=== PATIENT | female | born 1965 | race Caucasian/White ===

== ENCOUNTER → 2018-01-13 | Outpatient (CLI) | payer BC | END | disposition home or self-care (01) | LOC: OIH 09:30 | PROVIDERS: ATTEND Internal Medicine | DX: M47.895 Other spondylosis, thoracolumbar region (principal) | CPT/HCPCS: 71046 ==

== ENCOUNTER 2021-11-10 05:30 | Observation (INO) | payer BC ==
[2021-11-09 12:16] LABS: BASOPHILS % (AUTO) 0.6 % (0.0-5.0); EOSINOPHILS % (AUTO) 1.4 % (0.0-8.0); HEMATOCRIT 38.4 % (36-48); LYMPHOCYTES % (AUTO) 35.9 % (21.0-51.0); MEAN CORPUSCULAR HEMOGLOBIN 31.1 pg (27.0-33.0); MEAN CORPUSCULAR HGB CONC 33.3 g/dL (32.0-36.0); MEAN CORPUSCULAR VOLUME 93.2 fL (79-99); MONOCYTES % (AUTO) 6.5 % (3.0-13.0); NEUTROPHILS % (AUTO) 55.4 % (40.0-77.0); PLATELET COUNT (AUTO) 182 K/uL (130-400); RED BLOOD CELL COUNT(AUTO) 4.12 MIL/uL (4.00-5.50); RED CELL DISTRIBUTION WIDTH 12.6 % (11.0-15.5); WHITE BLOOD COUNT (AUTO) 4.9 K/uL (4.8-10.8)
[2021-11-09 13:28] VITALS: BP 135/77
[~2021-11-10] VITALS: Ht 170.2 cm; Wt 82.7 kg
[2021-11-10] VITALS (23 sets, daily range): BP systolic 97–131; BP diastolic 51–81
[~2021-11-10 05:30] MED LIST: MVIT PO
[2021-11-10] MEDS: CEFAZOLIN SODIUM 1 GM VIAL IVP ONE ×2 (07:38→10:48)
[2021-11-10] MEDS: LACTATED RINGERS 1000ML 1,000 ML IV SCH ×3 (07:38→12:08)
[2021-11-10] MEDS ORDERED: PROPOFOL 10 MG/ML 20ML VIAL IV ONE (08:33)
[2021-11-10] MEDS ORDERED: LIDOCAINE PF 100MG/5ML (2%) SYRINGE 5ML ONE (08:33)
[2021-11-10] MEDS ORDERED: SUCCINYLCHOLINE 200MG/10ML SYR ONE (08:33)
[2021-11-10] MEDS ORDERED: GLYCOPYRROLATE 1 MG/5 ML SYRINGE ONE ×2 (08:33→12:37)
[2021-11-10] MEDS ORDERED: DEXAMETHASONE SOD PHOSPHATE 10MG/ML 1ML VIAL ONE (08:33)
[2021-11-10] MEDS ORDERED: MIDAZOLAM HCL 1 MG/ML 2ML VIAL ONE (08:33)
[2021-11-10] MEDS ORDERED: FENTANYL CITRATE PF 50 MCG/1 ML 2ML VIAL ONE (08:34)
[2021-11-10] MEDS ORDERED: ONDANSETRON 4MG INJ ONE ×2 (08:34→12:26)
[2021-11-10] MEDS ORDERED: NEOSTIGMINE 5MG/5ML SYR IV ONE (08:34)
[2021-11-10] MEDS ORDERED: ROCURONIUM 10MG/1ML SYR 10 MG/ML ML ONE (08:34)
[2021-11-10] MEDS ORDERED: EPHEDRINE SULFATE 50 MG/ML AMPULE ONE (10:48)
[2021-11-10] MEDS ORDERED: MEPERIDINE-PF 25 MG/ML SYG ONE ×2 (12:25→12:54)
[2021-11-10] MEDS ORDERED: KETOROLAC 30MG VIAL (30MG/ML) ONE (12:26)
[2021-11-10] MEDS ORDERED: MEPERIDINE-PF 75 MG/ML SYG IM PRN (14:00)
[2021-11-10] MEDS ORDERED: PROMETHAZINE HCL 25 MG/ML 1ML AMPULE IM PRN ×2 (14:00)
[2021-11-10] MEDS ORDERED: BISACODYL 10 MG SUPP.RECT RC PRN (14:00)
[2021-11-10] MEDS: ACETAMINOPHEN WITH CODEINE 1 TAB TAB PO PRN ×2 (15:00→18:31)
[2021-11-10] MEDS: DEXTROSE 5 %-0.45 % NACL 1,000 ML IV PRN ×2 (15:00→22:09)
[2021-11-10] MEDS: ONDANSETRON 4MG INJ IVP PRN (19:13)
[2021-11-10] MEDS: IBUPROFEN 600 MG TABLET PO PRN (22:14)
[2021-11-11 04:00] VITALS: BP 100/58
[2021-11-11] MEDS: IBUPROFEN 600 MG TABLET PO PRN (04:00)
[2021-11-11] MEDS: DEXTROSE 5 %-0.45 % NACL 1,000 ML IV PRN (04:04)
[2021-11-11] MEDS: ONDANSETRON 4MG INJ IVP PRN ×2 (04:35→11:38)
[2021-11-11 05:21] LABS: HEMATOCRIT 32.5 % (36-48); MEAN CORPUSCULAR HEMOGLOBIN 31.3 pg (27.0-33.0); MEAN CORPUSCULAR HGB CONC 33.8 g/dL (32.0-36.0); MEAN CORPUSCULAR VOLUME 92.6 fL (79-99); RED BLOOD CELL COUNT(AUTO) 3.51 MIL/uL (4.00-5.50); RED CELL DISTRIBUTION WIDTH 12.7 % (11.0-15.5); WHITE BLOOD COUNT (AUTO) 6.8 K/uL (4.8-10.8)
[2021-11-11] MEDS ORDERED: ACETAMINOPHEN WITH CODEINE 1 TAB TAB PO PRN (06:00)
[2021-11-11] MEDS ORDERED: HYDROCODONE/ACETAMINOPHEN 5/325 MG TAB PO PRN (06:00)
[2021-11-11 07:25] VITALS: BP 112/69
[2021-11-11] MEDS: SIMETHICONE 80 MG TAB.CHEW PO PRN ×2 (09:18→21:06)
[2021-11-11] MEDS: NITROFURANTOIN MONOHYD/M-CRYST 100 MG CAPSULE PO SCH ×2 (09:18→21:06)
[2021-11-11] MEDS: DOCUSATE SODIUM 100 MG CAP PO PRN ×2 (09:18→21:06)
[2021-11-11] MEDS: ACETAMINOPHEN 325 MG TAB PO PRN ×2 (09:31→16:21)
[2021-11-11 11:46] VITALS: BP 117/67
[2021-11-11] MEDS: IBUPROFEN 800 MG TAB PO PRN (11:46)
[2021-11-11 15:40] VITALS: BP 144/77
[2021-11-11 19:18] VITALS: BP 130/66
[2021-11-11 23:50] VITALS: BP 107/68
[2021-11-12] MEDS: ACETAMINOPHEN 325 MG TAB PO PRN (04:00)
[2021-11-12 04:15] VITALS: BP 126/76
[2021-11-12 07:30] VITALS: BP 122/76
[2021-11-12] MEDS: NITROFURANTOIN MONOHYD/M-CRYST 100 MG CAPSULE PO SCH (09:29)
[2021-11-12] MEDS: SIMETHICONE 80 MG TAB.CHEW PO PRN (09:29)
[2021-11-12] MEDS: IBUPROFEN 800 MG TAB PO PRN (09:29)
[2021-11-12] MEDS: DOCUSATE SODIUM 100 MG CAP PO PRN (09:29)
[2021-11-12] MEDS ORDERED: NITR100C4 PO (09:45)
[2021-11-12] MEDS ORDERED: ACET-2079 PO (09:45)
== END 2021-11-12 10:35 | disposition home or self-care (01) ==
LOC: DAH 05:30 → DAHIP 05:31 → DAH 05:31 → WSH 13:35
PROVIDERS: ADMIT Obstetrics & Gynecology; ATTEND Obstetrics & Gynecology
DX: N81.10 Cystocele, unspecified (principal); Z20.822 Contact with and (suspected) exposure to COVID-19; N81.6 Rectocele; N39.3 Stress incontinence (female) (male); N89.9 Noninflammatory disorder of vagina, unspecified; Z79.899 Other long term (current) drug therapy; Z98.890 Other specified postprocedural states
CPT/HCPCS: 36415 ×2; 57260; 57288; 85025; 85027; 86850; 86900; 86901; 87635; 96374; 96376; A4215; A4221; A4222; A4223; A4344; A4351; A4510; A4600; A4606; A4663; C1771; C9803; G0378 ×45; J0330; J0690; J1100; J1885; J2001; J2175 ×2; J2250; J2405 ×5; J2704; J2710; J3010; J3490 ×3; J7120 ×3